=== PATIENT | female | born 1945 | race Caucasian/White ===

== ENCOUNTER 2018-05-08 17:43 | Inpatient (IN) | payer MEDICARE, OTHER ==
[~2018-05-08] VITALS: Ht 162.6 cm; Wt 75.2 kg
[2018-05-08] MEDS ORDERED: FURO20TA4 PO (19:14)
[2018-05-08] MEDS ORDERED: FLEC50TA PO (19:14)
[2018-05-08] MEDS ORDERED: FLEC50TA26 PO (19:14)
[2018-05-08] MEDS ORDERED: ATEN25PO PO (19:14)
[2018-05-08] MEDS ORDERED: PIOG15TA67 PO (19:14)
[2018-05-08] MEDS ORDERED: LOSA25TA96 PO (19:14)
[2018-05-08] MEDS ORDERED: LEVO75TA PO (19:14)
[2018-05-08] MEDS ORDERED: PANT-47 PO (19:14)
[2018-05-08] MEDS ORDERED: ondansetron 4mg rapidly disintigrating tab PO ONE (19:25)
[2018-05-08] MEDS ORDERED: ondansetron/PF 4mg/2ml inj IV ONE (19:35)
[2018-05-08] MEDS ORDERED: morphine 4 MG/ML inj SYRINge IV ONE ×2 (19:35→20:25)
[2018-05-08 19:56] LABS: BASOPHILS # (AUTO) 0.1 X10'3 (0-0.2); BASOPHILS % (AUTO) 0.8 % (0-1); EOSINOPHILS # (AUTO) 0.2 X10'3 (0-0.9); EOSINOPHILS % (AUTO) 1.7 % (0-6); HEMATOCRIT 37.1 % (35.0-45.0); HEMOGLOBIN 12.3 g/dl (12.0-16.0); LYMPHOCYTES # (AUTO) 1.7 X10'3 (1.1-4.8); LYMPHOCYTES % (AUTO) 16.7 % (21-51); MEAN CORPUSCULAR HEMOGLOBIN 29.8 PG (27.0-31.0); MEAN CORPUSCULAR HGB CONC 33.1 % (33.0-36.5); MEAN CORPUSCULAR VOLUME 90.2 FL (78-98); MEAN PLATELET VOLUME 8.4 FL (7.4-10.4); MONOCYTES # (AUTO) 0.5 X10'3 (0-0.9); MONOCYTES % (AUTO) 4.6 % (2-12); NEUTROPHILS # (AUTO) 7.8 X10'3 (1.8-7.7); NEUTROPHILS % (AUTO) 76.2 % (42-75); PLATELET COUNT 215 X10'3 (140-440); RED BLOOD COUNT 4.12 X10'6 (4.20-5.60); WHITE BLOOD COUNT 10.2 X10'3 (4.5-11.0)
[2018-05-08 20:08] LABS: INR 1.2 INR; PARTIAL THROMBOPLASTIN TIME 32 SECONDS (22-32); PROTHROMBIN TIME 12.4 SECONDS (9.0-12.0)
[2018-05-08 20:10] LABS: ANION GAP 11 (8-16); BILIRUBIN,TOTAL 0.5 MG/DL (0.1-1.0); BLOOD UREA NITROGEN 31 MG/DL (7-18); BUN/CREATININE RATIO 22.1 (6.6-38.0); CHLORIDE 103 MMOL/L (99-107); GLUCOSE 141 MG/DL (70-104); MAGNESIUM 1.8 MG/DL (1.5-2.4); POTASSIUM 4.1 MMOL/L (3.5-5.1); SODIUM 140 MMOL/L (135-145); TOTAL CARBON DIOXIDE 25.6 MMOL/L (24-32); eGFR 37 ML/MIN
[2018-05-08 20:11] LABS: ALANINE AMINOTRANSFERASE 26 U/L (12-78); ALBUMIN 3.7 G/DL (3.4-5.0); ALBUMIN/GLOBULIN RATIO 1.1 (1.1-1.5); ALKALINE PHOSPHATASE 79 IU/L (46-116); ASPARTATE AMINO TRANSFERASE 19 U/L (10-37)
[2018-05-08] MEDS ORDERED: temazepam 15mg capsule PO PRN (21:00)
[2018-05-08] MEDS ORDERED: magnesium hydroxide 30ml (MOM) UD suspension PO PRN (22:25)
[2018-05-08] MEDS ORDERED: morphine 10mg/ml inj. IV PRN (22:25)
[2018-05-08] MEDS ORDERED: mag hydrox/Alum hydrox/simeth 30ml oral suspension PO PRN (22:25)
[2018-05-08] MEDS ORDERED: acetaminophen 325mg tablet PO PRN ×2 (22:25)
[2018-05-08] MEDS ORDERED: HYDROcodone/acetaminophen 5mg/325mg tablet PO PRN (22:25)
[2018-05-08] MEDS: morphine 2 MG/ML inj. syringe IV PRN (22:34)
[2018-05-08] MEDS: normal saline 1000ml 1,000 ML IV SCH (23:50)
[2018-05-09] VITALS: BP 115/55
[2018-05-09 05:21] LABS: ALBUMIN 3.1 G/DL (3.4-5.0); ANION GAP 10 (8-16); BLOOD UREA NITROGEN 24 MG/DL (7-18); BUN/CREATININE RATIO 21.8 (6.6-38.0); CALCIUM 8.2 MG/DL (8.5-10.1); CHLORIDE 104 MMOL/L (99-107); GLUCOSE 147 MG/DL (70-104); SODIUM 141 MMOL/L (135-145); eGFR 48 ML/MIN
[2018-05-09 05:22] LABS: BASOPHILS % (AUTO) 0.3 % (0-1); EOSINOPHILS # (AUTO) 0.3 X10'3 (0-0.9); EOSINOPHILS % (AUTO) 3.3 % (0-6); HEMATOCRIT 33.8 % (35.0-45.0); HEMOGLOBIN 11.2 g/dl (12.0-16.0); LYMPHOCYTES # (AUTO) 1.6 X10'3 (1.1-4.8); LYMPHOCYTES % (AUTO) 21.3 % (21-51); MEAN CORPUSCULAR HEMOGLOBIN 29.8 PG (27.0-31.0); MEAN CORPUSCULAR VOLUME 90.3 FL (78-98); MEAN PLATELET VOLUME 8.8 FL (7.4-10.4); MONOCYTES # (AUTO) 0.5 X10'3 (0-0.9); NEUTROPHILS # (AUTO) 5.3 X10'3 (1.8-7.7); NEUTROPHILS % (AUTO) 69.1 % (42-75); PLATELET COUNT 184 X10'3 (140-440); RED BLOOD COUNT 3.75 X10'6 (4.20-5.60); RED CELL DISTRIBUTION WIDTH 13.1 % (11.5-14.5); WHITE BLOOD COUNT 7.7 X10'3 (4.5-11.0)
[2018-05-09 06:13] LABS: HEMOGLOBIN A1C 6.7 % (4.5-6.2)
[2018-05-09 07:16] VITALS: BP 117/49
[2018-05-09] MEDS ORDERED: glucagon, human recombinant 1mg kit SUBCUT PRN (07:50)
[2018-05-09] MEDS ORDERED: dextrose 50%-water 50ml dispensing syringe IV PRN ×2 (07:50)
[2018-05-09] MEDS ORDERED: dextrose ORAL solution 15 GM/59 ML bottle PO PRN ×2 (07:50)
[2018-05-09] MEDS ORDERED: insulin Lispro (HumaLOG) vial - multi-dose SQ SCH (07:50)
[2018-05-09] MEDS ORDERED: MESSAGE TO PHARMACY PO ONE (07:50)
[2018-05-09] MEDS ORDERED: pioglitazone 15mg tablet PO SCH (08:00)
[2018-05-09] MEDS: pantoprazole 40mg Tablet.DR PO SCH (08:10)
[2018-05-09] MEDS: flecainide 50mg tablet PO SCH ×2 (08:10→21:42)
[2018-05-09] MEDS: furosemide 20MG tablet PO SCH (08:11)
[2018-05-09] MEDS: levoTHYROXINE 75mcg tablet PO SCH (08:11)
[2018-05-09] MEDS: losartan 25mg tablet PO SCH (08:12)
[2018-05-09] MEDS: HYDROcodone/acetaminophen 10/325mg tab PO PRN ×3 (08:12→20:33)
[2018-05-09] MEDS: atenolol 25mg tablet PO SCH (08:12)
[2018-05-09 08:24] LABS: MAGNESIUM 1.8 MG/DL (1.5-2.4)
[2018-05-09 11:00] VITALS: BP 106/43
[2018-05-09] MEDS: normal saline 1000ml 1,000 ML IV SCH ×2 (11:04→20:35)
[2018-05-09 11:35] VITALS: BP 106/43
[2018-05-09 20:00] VITALS: BP 108/48
[2018-05-09] MEDS: insulin glargine (Lantus) pen - multi-dose SQ SCH (21:00)
[2018-05-10] VITALS (21 sets, daily range): BP systolic 101–126; BP diastolic 40–81
[2018-05-10] MEDS: ondansetron/PF 4mg/2ml inj IV PRN ×2 (05:12→20:11)
[2018-05-10 05:14] LABS: ALANINE AMINOTRANSFERASE 21 U/L (12-78); ALBUMIN 2.9 G/DL (3.4-5.0); ALBUMIN/GLOBULIN RATIO 0.9 (1.1-1.5); ALKALINE PHOSPHATASE 67 IU/L (46-116); ANION GAP 11 (8-16); ASPARTATE AMINO TRANSFERASE 16 U/L (10-37); BILIRUBIN,TOTAL 0.6 MG/DL (0.1-1.0); BLOOD UREA NITROGEN 16 MG/DL (7-18); CALCIUM 8.4 MG/DL (8.5-10.1); CHLORIDE 104 MMOL/L (99-107); CREATININE 1.07 MG/DL (0.40-0.90); GLUCOSE 116 MG/DL (70-104); POTASSIUM 3.8 MMOL/L (3.5-5.1); SODIUM 142 MMOL/L (135-145); TOTAL CARBON DIOXIDE 27.2 MMOL/L (24-32); TOTAL PROTEIN 6.2 G/DL (6.4-8.2); eGFR 50 ML/MIN
[2018-05-10 05:15] LABS: BASOPHILS % (AUTO) 0.2 % (0-1); EOSINOPHILS # (AUTO) 0.7 X10'3 (0-0.9); EOSINOPHILS % (AUTO) 8.4 % (0-6); HEMATOCRIT 35.7 % (35.0-45.0); HEMOGLOBIN 11.6 g/dl (12.0-16.0); MEAN CORPUSCULAR HEMOGLOBIN 29.7 PG (27.0-31.0); MEAN CORPUSCULAR HGB CONC 32.6 % (33.0-36.5); MEAN PLATELET VOLUME 8.9 FL (7.4-10.4); MONOCYTES # (AUTO) 0.6 X10'3 (0-0.9); MONOCYTES % (AUTO) 6.9 % (2-12); NEUTROPHILS # (AUTO) 4.8 X10'3 (1.8-7.7); NEUTROPHILS % (AUTO) 59.5 % (42-75); PLATELET COUNT 172 X10'3 (140-440); RED BLOOD COUNT 3.92 X10'6 (4.20-5.60); WHITE BLOOD COUNT 8.1 X10'3 (4.5-11.0)
[2018-05-10] MEDS: normal saline 1000ml 1,000 ML IV SCH ×3 (05:18→23:48)
[2018-05-10] MEDS: morphine 2 MG/ML inj. syringe IV PRN ×2 (05:18→12:37)
[2018-05-10 05:48] LABS: INR 1.1 INR; PARTIAL THROMBOPLASTIN TIME 30 SECONDS (22-32); PROTHROMBIN TIME 11.7 SECONDS (9.0-12.0)
[2018-05-10] MEDS: heparin, porcine 5000 units/ml vial SQ SCH ×4 (08:00→23:50)
[2018-05-10] MEDS: furosemide 20MG tablet PO SCH (08:26)
[2018-05-10] MEDS: pantoprazole 40mg Tablet.DR PO SCH (08:26)
[2018-05-10] MEDS: losartan 25mg tablet PO SCH (08:26)
[2018-05-10] MEDS: atenolol 25mg tablet PO SCH (08:26)
[2018-05-10] MEDS: levoTHYROXINE 75mcg tablet PO SCH (08:26)
[2018-05-10] MEDS: flecainide 50mg tablet PO SCH ×2 (08:27→20:24)
[2018-05-10] MEDS ORDERED: ceFAZolin 1GM/D5W- ADD-VANTAGE 50 ML IV ONE (16:30)
[2018-05-10] MEDS ORDERED: ringers solution, lacted 1,000 ML IV SCH ×2 (17:22→18:11)
[2018-05-10] MEDS ORDERED: morphine 4 MG/ML inj SYRINge IV PRN ×4 (17:25→18:15)
[2018-05-10] MEDS ORDERED: meperidine/PF 25mg/ml syringe IV PRN ×5 (17:25→18:15)
[2018-05-10] MEDS ORDERED: ondansetron/PF 4mg/2ml inj IV PRN ×2 (17:25→18:15)
[2018-05-10] MEDS ORDERED: proCHLORperazine 10 MG/2 ml inj IV PRN ×2 (17:25→18:15)
[2018-05-10] MEDS ORDERED: ePHEDrine 50MG/ML INJ. ONE (17:43)
[2018-05-10] MEDS ORDERED: desflurane 240ml liquid inh. IH ONE (17:43)
[2018-05-10] MEDS ORDERED: fentaNYL/PF 50MCG/1 ML 2ML syringe ONE (17:48)
[2018-05-10] MEDS ORDERED: midazolam 2 mg/2 ml injection ONE (17:49)
[2018-05-10] MEDS ORDERED: LIDOcaine 2% (20mg/ml) 5ml vial ONE (18:18)
[2018-05-10] MEDS ORDERED: propofol inj 20 ML IV ONE (18:18)
[2018-05-10] MEDS: meperidine/PF 25mg/ml syringe IV PRN ×2 (19:06→19:30)
[2018-05-10] MEDS: HYDROcodone/acetaminophen 10/325mg tab PO PRN (20:24)
[2018-05-10] MEDS: insulin glargine (Lantus) pen - multi-dose SQ SCH (21:00)
[2018-05-10] MEDS: cefazolin/dext.iso 2gm/100ml 100 ML IV SCH (23:52)
[2018-05-11] VITALS: BP 105/59
[2018-05-11 02:00] VITALS: BP 114/40
[2018-05-11] MEDS: HYDROcodone/acetaminophen 10/325mg tab PO PRN ×2 (05:41→17:05)
[2018-05-11 05:53] LABS: BASOPHILS % (AUTO) 0.4 % (0-1); EOSINOPHILS # (AUTO) 0.7 X10'3 (0-0.9); EOSINOPHILS % (AUTO) 7.9 % (0-6); LYMPHOCYTES # (AUTO) 1.5 X10'3 (1.1-4.8); MEAN CORPUSCULAR HEMOGLOBIN 29.5 PG (27.0-31.0); MEAN CORPUSCULAR HGB CONC 32.3 % (33.0-36.5); MEAN CORPUSCULAR VOLUME 91.2 FL (78-98); MEAN PLATELET VOLUME 8.3 FL (7.4-10.4); MONOCYTES # (AUTO) 0.5 X10'3 (0-0.9); MONOCYTES % (AUTO) 5.6 % (2-12); NEUTROPHILS # (AUTO) 5.7 X10'3 (1.8-7.7); NEUTROPHILS % (AUTO) 68.1 % (42-75); PLATELET COUNT 172 X10'3 (140-440); RED BLOOD COUNT 3.73 X10'6 (4.20-5.60); RED CELL DISTRIBUTION WIDTH 12.9 % (11.5-14.5); WHITE BLOOD COUNT 8.3 X10'3 (4.5-11.0)
[2018-05-11 06:00] VITALS: BP 109/43
[2018-05-11 06:02] LABS: ALBUMIN 2.7 G/DL (3.4-5.0); ANION GAP 10 (8-16); BLOOD UREA NITROGEN 16 MG/DL (7-18); BUN/CREATININE RATIO 13.4 (6.6-38.0); CALCIUM 7.7 MG/DL (8.5-10.1); CHLORIDE 105 MMOL/L (99-107); CREATININE 1.19 MG/DL (0.40-0.90); GLUCOSE 109 MG/DL (70-104); POTASSIUM 3.8 MMOL/L (3.5-5.1); SODIUM 142 MMOL/L (135-145); TOTAL CARBON DIOXIDE 27.2 MMOL/L (24-32); eGFR 44 ML/MIN
[2018-05-11] MEDS: furosemide 20MG tablet PO SCH (07:34)
[2018-05-11] MEDS: flecainide 50mg tablet PO SCH ×2 (07:34→21:20)
[2018-05-11] MEDS: atenolol 25mg tablet PO SCH (07:34)
[2018-05-11] MEDS: levoTHYROXINE 75mcg tablet PO SCH (07:34)
[2018-05-11] MEDS: losartan 25mg tablet PO SCH (07:34)
[2018-05-11] MEDS: pantoprazole 40mg Tablet.DR PO SCH (07:34)
[2018-05-11] MEDS: heparin, porcine 5000 units/ml vial SQ SCH (07:35)
[2018-05-11] MEDS: cefazolin/dext.iso 2gm/100ml 100 ML IV SCH ×2 (08:01→17:05)
[2018-05-11 11:00] VITALS: BP 120/53
[2018-05-11] MEDS: normal saline 1000ml 1,000 ML IV SCH ×2 (12:22→20:22)
[2018-05-11] MEDS: loratadine 10mg tablet PO SCH (17:05)
[2018-05-11] MEDS: montelukast 10mg tablet PO SCH (17:06)
[2018-05-11 18:00] VITALS: BP 142/53
[2018-05-11] MEDS: insulin glargine (Lantus) pen - multi-dose SQ SCH (21:00)
[2018-05-11] MEDS: famotidine 20mg tablet PO SCH (21:20)
[2018-05-11] MEDS: dabigatran 150mg capsule PO SCH (21:20)
[2018-05-11] MEDS: lactobacillus rhamnosus 10,000 MMU CELLS/CAPSULE PO SCH (21:20)
[2018-05-12] MEDS: normal saline 1000ml 1,000 ML IV SCH ×2 (00:51→13:19)
[2018-05-12] MEDS: cefazolin/dext.iso 2gm/100ml 100 ML IV SCH ×2 (00:51→08:00)
[2018-05-12] MEDS: HYDROcodone/acetaminophen 10/325mg tab PO PRN ×3 (04:41→21:46)
[2018-05-12 05:47] LABS: ALBUMIN 2.6 G/DL (3.4-5.0); ANION GAP 9 (8-16); BLOOD UREA NITROGEN 14 MG/DL (7-18); CALCIUM 8.5 MG/DL (8.5-10.1); CHLORIDE 105 MMOL/L (99-107); CREATININE 1.08 MG/DL (0.40-0.90); GLUCOSE 143 MG/DL (70-104); POTASSIUM 3.7 MMOL/L (3.5-5.1); SODIUM 142 MMOL/L (135-145); TOTAL CARBON DIOXIDE 28.3 MMOL/L (24-32); eGFR 49 ML/MIN
[2018-05-12 06:00] VITALS: BP 139/50
[2018-05-12] MEDS: pioglitazone 15mg tablet PO SCH (07:31)
[2018-05-12] MEDS: loratadine 10mg tablet PO SCH (07:31)
[2018-05-12] MEDS: lactobacillus rhamnosus 10,000 MMU CELLS/CAPSULE PO SCH ×2 (07:31→19:39)
[2018-05-12] MEDS: losartan 25mg tablet PO SCH (07:31)
[2018-05-12] MEDS: pantoprazole 40mg Tablet.DR PO SCH (07:32)
[2018-05-12] MEDS: levoTHYROXINE 75mcg tablet PO SCH (07:32)
[2018-05-12] MEDS: atenolol 25mg tablet PO SCH (07:32)
[2018-05-12] MEDS: montelukast 10mg tablet PO SCH (07:32)
[2018-05-12] MEDS: flecainide 50mg tablet PO SCH ×2 (07:33→19:40)
[2018-05-12] MEDS: dabigatran 150mg capsule PO SCH ×2 (07:34→19:39)
[2018-05-12] MEDS: famotidine 20mg tablet PO SCH (07:41)
[2018-05-12] MEDS: furosemide 20MG tablet PO SCH (07:41)
[2018-05-12 08:47] LABS: EOSINOPHILS % (AUTO) 10.7 % (0-6); HEMATOCRIT 32.2 % (35.0-45.0); HEMOGLOBIN 11.1 g/dl (12.0-16.0); LYMPHOCYTES % (AUTO) 20.2 % (21-51); MEAN CORPUSCULAR HEMOGLOBIN 31.3 PG (27.0-31.0); MEAN CORPUSCULAR HGB CONC 34.6 % (33.0-36.5); MEAN CORPUSCULAR VOLUME 90.6 FL (78-98); MEAN PLATELET VOLUME 9.1 FL (7.4-10.4); MONOCYTES % (AUTO) 5.8 % (2-12); NEUTROPHILS % (AUTO) 62.8 % (42-75); PLATELET COUNT 185 X10'3 (140-440); RED BLOOD COUNT 3.55 X10'6 (4.20-5.60)
[2018-05-12 08:48] LABS: BASOPHILS % (AUTO) 0.5 % (0-1); EOSINOPHILS # (AUTO) 0.9 X10'3 (0-0.9); LYMPHOCYTES # (AUTO) 1.6 X10'3 (1.1-4.8); MONOCYTES # (AUTO) 0.5 X10'3 (0-0.9)
[2018-05-12 10:00] VITALS: BP 122/49
[2018-05-12] MEDS ORDERED: lactose-reduced food (Ensure High Protein) 237ml bottle PO SCH (13:00)
[2018-05-12 18:00] VITALS: BP 145/61
[2018-05-12] MEDS: insulin glargine (Lantus) pen - multi-dose SQ SCH (20:39)
[2018-05-12 22:00] VITALS: BP 143/65
[2018-05-13] MEDS: HYDROcodone/acetaminophen 10/325mg tab PO PRN ×2 (05:59→14:30)
[2018-05-13 06:30] VITALS: BP 158/62
[2018-05-13 07:57] LABS: ALBUMIN 2.8 G/DL (3.4-5.0); ANION GAP 9 (8-16); BLOOD UREA NITROGEN 12 MG/DL (7-18); BUN/CREATININE RATIO 11.2 (6.6-38.0); CALCIUM 8.9 MG/DL (8.5-10.1); CHLORIDE 104 MMOL/L (99-107); CREATININE 1.07 MG/DL (0.40-0.90); GLUCOSE 150 MG/DL (70-104); POTASSIUM 3.8 MMOL/L (3.5-5.1); SODIUM 141 MMOL/L (135-145); TOTAL CARBON DIOXIDE 28.5 MMOL/L (24-32); eGFR 50 ML/MIN
[2018-05-13] MEDS: atenolol 25mg tablet PO SCH (08:00)
[2018-05-13] MEDS: loratadine 10mg tablet PO SCH (08:00)
[2018-05-13] MEDS: montelukast 10mg tablet PO SCH (08:00)
[2018-05-13 08:04] LABS: BASOPHILS % (AUTO) 0.7 % (0-1); EOSINOPHILS # (AUTO) 0.8 X10'3 (0-0.9); EOSINOPHILS % (AUTO) 10.9 % (0-6); HEMATOCRIT 34.2 % (35.0-45.0); HEMOGLOBIN 11.7 g/dl (12.0-16.0); LYMPHOCYTES # (AUTO) 1.4 X10'3 (1.1-4.8); LYMPHOCYTES % (AUTO) 19.9 % (21-51); MEAN CORPUSCULAR HEMOGLOBIN 30.6 PG (27.0-31.0); MEAN CORPUSCULAR HGB CONC 34.2 % (33.0-36.5); MEAN CORPUSCULAR VOLUME 89.5 FL (78-98); MEAN PLATELET VOLUME 8.4 FL (7.4-10.4); MONOCYTES # (AUTO) 0.5 X10'3 (0-0.9); MONOCYTES % (AUTO) 6.4 % (2-12); NEUTROPHILS # (AUTO) 4.4 X10'3 (1.8-7.7); NEUTROPHILS % (AUTO) 62.1 % (42-75); PLATELET COUNT 194 X10'3 (140-440); RED BLOOD COUNT 3.82 X10'6 (4.20-5.60); WHITE BLOOD COUNT 7.1 X10'3 (4.5-11.0)
[2018-05-13] MEDS: pantoprazole 40mg Tablet.DR PO SCH (08:10)
[2018-05-13] MEDS: lactobacillus rhamnosus 10,000 MMU CELLS/CAPSULE PO SCH (08:11)
[2018-05-13] MEDS: losartan 25mg tablet PO SCH (08:11)
[2018-05-13] MEDS: flecainide 50mg tablet PO SCH (08:11)
[2018-05-13] MEDS: furosemide 20MG tablet PO SCH (08:11)
[2018-05-13] MEDS: pioglitazone 15mg tablet PO SCH (08:11)
[2018-05-13] MEDS: levoTHYROXINE 75mcg tablet PO SCH (08:11)
[2018-05-13] MEDS: dabigatran 150mg capsule PO SCH (08:15)
[2018-05-13] MEDS ORDERED: LORA10TA65 PO (13:28)
[2018-05-13] MEDS ORDERED: DABI150C PO (13:28)
[2018-05-13] MEDS ORDERED: MONT10TA24 PO (13:29)
== END 2018-05-13 14:45 | DRG 481 ==
LOC: ER 17:43 → ED HOLD 22:22 → SUR 3N 23:33 → PACU 05-10 17:00 → ORTHO 4S 05-10 20:07
PROVIDERS: ADMIT Hospitalist; ATTEND Family Medicine
PROC: 0QH634Z Insertion of Internal Fixation Device into Right Upper Femur, Percutaneous Approach (ICD-10-PCS; principal; 2018-05-10 17:43)
DX: S72.011A Unspecified intracapsular fracture of right femur, initial encounter for closed fracture (principal); D62 Acute posthemorrhagic anemia; S42.031A Displaced fracture of lateral end of right clavicle, initial encounter for closed fracture; E03.9 Hypothyroidism, unspecified; E11.22 Type 2 diabetes mellitus with diabetic chronic kidney disease; I12.9 Hypertensive chronic kidney disease with stage 1 through stage 4 chronic kidney disease, or unspecified chronic kidney disease; N18.3 Chronic kidney disease, stage 3 (moderate); I48.2 Chronic atrial fibrillation; E04.2 Nontoxic multinodular goiter; M25.531 Pain in right wrist; K21.9 Gastro-esophageal reflux disease without esophagitis; K59.00 Constipation, unspecified; L30.9 Dermatitis, unspecified; W01.0XXA Fall on same level from slipping, tripping and stumbling without subsequent striking against object, initial encounter; Z90.710 Acquired absence of both cervix and uterus; Z90.49 Acquired absence of other specified parts of digestive tract; Z79.899 Other long term (current) drug therapy; Z79.01 Long term (current) use of anticoagulants; Y93.89 Activity, other specified; Y92.89 Other specified places as the place of occurrence of the external cause; Y99.8 Other external cause status
CPT/HCPCS: 36415; 70450; 71045; 72192; 73030; 73110; 73502; 76001; 80048; 80053; 82948; 83036; 83735; 84443; 85025; 85610; 85730; 87070; 93005; 96374; 96375; 96376; 97110; 97116; 97161; 97530; 97535; 99285; A4315; A4565; A6222; A6402; A6449; A7000; C1713; J0690; J1644; J1815; J2001; J2175; J2250; J2270; J2405; J2704; J3010; J3370; J7030; J7120